=== PATIENT | male | born 1995 | race Caucasian/White ===

== ENCOUNTER 2022-08-03 22:38 | Emergency (ER) | payer OTHER | END 2022-08-04 01:00 | LOC: ERS 22:38 | DX: T83.9XXA Unspecified complication of genitourinary prosthetic device, implant and graft, initial encounter (principal); I10 Essential (primary) hypertension; F17.290 Nicotine dependence, other tobacco product, uncomplicated; Z79.899 Other long term (current) drug therapy; Z79.01 Long term (current) use of anticoagulants | CPT/HCPCS: 99283 ==